=== PATIENT | female | born 1975 | race Caucasian/White ===

== ENCOUNTER 2020-03-05 21:33 | Inpatient (IN) | payer MEDICARE, MEDICAID ==
[~2020-03-05] VITALS: Ht 154.9 cm; Wt 75.8 kg
[2020-03-05] MEDS ORDERED: LEVO125T4 PO (21:56)
[2020-03-05] MEDS ORDERED: TRAZ1TAB10 PO (21:56)
[2020-03-05] MEDS ORDERED: HYDR50CA2 PO (21:56)
[2020-03-05] MEDS ORDERED: LATU40TA PO (21:56)
[2020-03-05] MEDS ORDERED: PROZ40CA PO (21:56)
[2020-03-06] MEDS ORDERED: MOM 30ML SUSPENSION UDC PO PRN (00:30)
[2020-03-06] MEDS ORDERED: traZODone 50 MG TAB PO PRN (00:30)
[2020-03-06] MEDS ORDERED: IBUPROFEN 400 MG TAB PO PRN (00:30)
[2020-03-06] MEDS ORDERED: OLANZapine ORAL DISINTEGRATING TAB 5MG PO PRN (00:30)
[2020-03-06] MEDS ORDERED: MAALOX 30 ML SUSP *UDC PO PRN (00:30)
[2020-03-06 01:30] VITALS: BP 123/68
[2020-03-06 05:52] VITALS: BP 113/54
[2020-03-06] MEDS: NICOTINE 7 MG/24 HR TRANSDERMAL TD SCH (08:59)
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
--- NOTE | 2020-03-06 14:53 | HPEPDOC ---
General Date of Admission March 06, 2020 at 00:28 Date of Service: March 06, 2020 Chief Complaint The patient is a 44-year-old female Who presented to the hospital after having suicidal thoughts History of Present Illness Patient is a 44-year-old female with a past medical history of hypothyroidism and depression who presented to the emergency room after having suicidal ideation report that she wanted to cut her wrists bed confined any razors. She decided to call for help and was advised to come to emergency room for evaluation. Patient was admitted to the inpatient mental health unit under the care of psychiatry. Hospitalist services consult for medical evaluation. Currently, patient reports that she does experiencing some nausea without any episodes of vomiting. Reports remote history of palpitations and constipation. Denies any chest pain, shortness of breath, cough, abdominal pain, diarrhea, or urinary discomfort. Patient also reports 7. The last couple of days. She may have experienced chills. Patient reports her appetite is poor and has reported some weight loss. Home Medications Scheduled Fluoxetine HCl (Prozac) 40 Mg Capsule, 40 MG PO DAILY, (Reported) Levothyroxine Sodium (Levothyroxine Sodium) 125 Mcg Tablet, 125 MG PO QAM, (Reported) Lurasidone Hydrochloride (Latuda) 40 Mg Tablet, 40 MG PO QPM, (Reported) Scheduled PRN Hydroxyzine Pamoate (Hydroxyzine Pamoate) 50 Mg Capsule, 50 MG PO BID PRN for ANXIETY, (Reported) Trazodone HCl (Trazodone HCl) 50 Mg Tablet, 50 MG PO QPM PRN for INSOMNIA, (Reported) Allergies Coded Allergies: No Known Allergies (Unverified , 03/05/20) Past Medical History Medical History Hypothyroidism Depression Surgical History Tubal ligation 2000 Pyloric stenosis. s/p surgery as an infant Family History - Mother with a history of breast cancer - Father, , but with a history of diabetes, asthma, COPD, emphysema Social History - Patient is a smoker on and off since the age of 16 - Social alcohol use - She reports using marijuana occasionally - Denies recent travel or sick contacts - Lives with son and his girlfriend - Occupation; currently unemployed and on disability Review of Systems Other systems 10 point review of systems complete, all negative otherwise stated in HPI Vital Signs - Vitals: BP 113/54, HR 55, RR 14, Sat 97%RA, Temp 98.5F - General: Sitting in exam chair, appears comfortable, AAOx3 - HEENT: NC, AT, PERRLA - CVS: Bradycardic, +S1S2 - Lungs: Fair air entry bilaterally, No appreciable wheezing / rales / rhonchi - Abdomen: Soft, Non-distended, Non-tender - Extremities: No lower extremity edema, No calf tenderness - Neuro: No focal motor or sensory deficit - Skin: No visible rashes Plan / VTE VTE Prophylaxis Ordered?: Yes Plan Plan Suicidal ideation - Patient presented to the emergency room after having thoughts of suicide - Patient was admitted to the inpatient mental health unit under the care of psychiatry - This is currently being managed by psychiatry Hypothyroidism - Patient has had some bradycardia remains asymptomatic - Will check TSH, free T4 and total T3 - Will continue with levothyroxine DVT prophylaxis - Will c/w early ambulation Female grain packer was present for the duration of his history and physical examination Thank you for this consultation; please reconsult as needed CHRISTA REYNOSO MD March 06, 2020 14:53
[2020-03-06 16:32] LABS: FREE T4 1.24 NG/DL (0.76-1.46); THYROID STIMULATING HORMONE 1.53 uIU/ML (0.358-3.740)
[2020-03-06] MEDS: LURASIDONE HCL 40 MG TAB (LATUDA) PO SCH (17:33)
[2020-03-06] MEDS: LEVOTHYROXINE 125MCG TABLET (0.125MG) PO SCH (17:33)
[2020-03-06] MEDS: FLUoxetine 20 MG CAP PO SCH (17:33)
[2020-03-06 18:00] VITALS: BP 131/60
[2020-03-06] MEDS: hydrOXYzine 50 MG TAB PO PRN (19:02)
[2020-03-07] MEDS: LEVOTHYROXINE 125MCG TABLET (0.125MG) PO SCH (05:46)
[2020-03-07 06:12] VITALS: BP 112/58
[2020-03-07] MEDS: NICOTINE 7 MG/24 HR TRANSDERMAL TD SCH (08:17)
[2020-03-07] MEDS: FLUoxetine 20 MG CAP PO SCH (08:17)
--- NOTE | 2020-03-07 09:05 | MHIPNPDOC ---
[facility] Progress Note Progress Note DATE OF SERVICE: 03/07/20 44-year-old woman seen in follow-up, she reports still being depressed, anxious and having difficulty with motivation. She reports no side effects from her m edications. She is been attending to treatment but appears to be quite depressed per nursing. She appears to be engaging in treatment but reports that it's difficult to cope with her current living situation. Vital Signs Vital Signs Date Time Temp Pulse Resp B/P (MAP) Pulse Ox O2 Delivery O2 Flow Rate FiO2 03/07/20 06:12 98.2 65 12 112/58 (76) 03/06/20 01:30 97 Room Air Laboratory Data 24H Labs Laboratory Tests 2 03/06/20 15:39: Thyroid Stimulating Hormone (TSH) 1.530, Free Thyroxine 1.24 Current Medications Current Medications Medications (Trade) Dose Ordered Sig/Nahid Route PRN Reason Start Time Stop Time Status Last Admin Dose Admin Al Hydrox/Mg Hydrox/Simethicone (Mylanta) 30 ml Q4HP PRN PO HEARTBURN/INDIGESTION 03/06/20 00:30 Fluoxetine HCl (PROzac) 40 mg DAILY PO 03/06/20 09:00 03/07/20 08:17 Home Med (Med Rec Complete!) 1 ea ASDIRECTED XX 03/05/20 22:45 03/05/20 22:41 DC Hydroxyzine HCl (Atarax) 50 mg BID PRN PO ANXIETY 03/06/20 14:30 03/06/20 19:02 Ibuprofen (Advil) 400 mg Q6HP PRN PO PAIN 03/06/20 00:30 Levothyroxine Sodium (Synthroid) 125 mcg QAM@0600 PO 03/06/20 06:00 03/07/20 05:46 Lurasidone HCl (Latuda) 40 mg QPM@1800 PO 03/06/20 18:00 03/06/20 17:33 Magnesium Hydroxide (Milk Of Magnesia) 30 ml DAILYPRN PRN PO CONSTIPATION 03/06/20 00:30 Nicotine (Nicoderm Cq 7 Mg) 1 patch DAILY TD 03/06/20 09:00 03/07/20 08:17 Olanzapine (ZyPREXA ZYDIS) 5 mg Q6HP PRN PO ANXIETY/AGITATION 03/06/20 00:30 Trazodone HCl (Desyrel) 50 mg QHSP PRN PO INSOMNIA 03/06/20 00:30 Allergies Coded Allergies: No Known Allergies (Unverified , 03/05/20) Review of Systems Review of Systems General: Reports: Normal Appetite Constitutional: Denies: Fever, Fatigue Pulmonary: Denies: Cough Cardiovascular: Denies: Chest Pain, Palpitations Gastrointestinal: Denies: Nausea, Vomiting, Abdominal Pain, Diarrhea, Constipation Musculoskeletal: Denies: Muscle Pain Psych: Reports: Depression Mental Status Examination General Appearance: well groomed Build: average Demeanor: average Eye Contact: average Activity: average Behavior: cooperative Speech: clear Mood: depressed Affect: constricted Thought Process: logical/linear Thought Content (Delusions): none reported Thought Content (Other): other (SI passive) Thought Content (Aggressive): none reported Perception (Hallucinations): none reported Perception (Other): none reported Cognition (Impairment of): none reported Cognition(Intelligence Est.): MR Oriented: Awake Insight: fair Judgment: Fair Psychosis: Denies Assessment 44-year-old woman with a history of depression and PTSD as well as noncompliance with her medications is seen in follow-up, she is making very slow progress. She is converted to voluntary in order to further her treatment. Problem List Problems: (1) Suicidal ideation Onset Date: ~ 03/03/2020 Status: Acute Response to Treatment: Improving Problem Specific Plan: Monitor Clinically Problem Text: Appears to be resolving slowly (2) Depression Status: Acute Response to Treatment: Stable Problem Specific Plan: Monitor Clinically Problem Text: continue prozac and latuda (3) Post-traumatic stress disorder, unspecified Status: Chronic Response to Treatment: Stable Discussed With: Nurse Problem Text: Prozac contiue (4) Cannabis abuse Status: Chronic Response to Treatment: Stable Discussed With: Nurse Problem Text: likely making situation worse. (5) Hypothyroid Status: Chronic Problem Text: continue thyroid medications Medications Scheduled Fluoxetine HCl (Prozac) 40 Mg Capsule, 40 MG PO DAILY, (Reported) Levothyroxine Sodium (Levothyroxine Sodium) 125 Mcg Tablet, 125 MG PO QAM, (Reported) Lurasidone Hydrochloride (Latuda) 40 Mg Tablet, 40 MG PO QPM, (Reported) Scheduled PRN Hydroxyzine Pamoate (Hydroxyzine Pamoate) 50 Mg Capsule, 50 MG PO BID PRN for ANXIETY, (Reported) Trazodone HCl (Trazodone HCl) 50 Mg Tablet, 50 MG PO QPM PRN for INSOMNIA, (Reported) NATHANIEL RIDLEY DO March 07, 2020 09:05
[2020-03-07 10:03] LABS: TOTAL T3 107.5 NG/DL (60.0-181.0)
[2020-03-07] MEDS: LURASIDONE HCL 40 MG TAB (LATUDA) PO SCH (17:16)
[2020-03-07] MEDS: hydrOXYzine 50 MG TAB PO PRN (18:38)
[2020-03-07 18:47] VITALS: BP 128/69
[2020-03-08] MEDS: LEVOTHYROXINE 125MCG TABLET (0.125MG) PO SCH (06:07)
[2020-03-08 06:12] VITALS: BP 107/57
[2020-03-08] MEDS: NICOTINE 7 MG/24 HR TRANSDERMAL TD SCH (08:15)
[2020-03-08] MEDS: FLUoxetine 20 MG CAP PO SCH (08:15)
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
[2020-03-08] MEDS: hydrOXYzine 50 MG TAB PO PRN (16:37)
[2020-03-08 16:59] VITALS: BP 133/67
[2020-03-08] MEDS: LURASIDONE HCL 40 MG TAB (LATUDA) PO SCH (17:48)
[2020-03-09 05:52] VITALS: BP 106/51
[2020-03-09] MEDS: LEVOTHYROXINE 125MCG TABLET (0.125MG) PO SCH (05:57)
[2020-03-09] MEDS: FLUoxetine 20 MG CAP PO SCH (08:53)
[2020-03-09] MEDS: NICOTINE 7 MG/24 HR TRANSDERMAL TD SCH (08:53)
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
[2020-03-09] MEDS ORDERED: NICO7PA TD (11:09)
[2020-03-09] MEDS: hydrOXYzine 50 MG TAB PO PRN (11:58)
== END 2020-03-09 14:10 | disposition home or self-care (01) | DRG 881 ==
LOC: EDSEX 21:33 → M ED 21:33 → M ED INP 03-06 00:28 → M PSY 03-06 01:39
PROVIDERS: ADMIT Psychiatry & Neurology Psychiatry; ATTEND Psychiatry & Neurology Addiction Medicine
DX: F32.9 Major depressive disorder, single episode, unspecified (principal); R45.851 Suicidal ideations; F43.12 Post-traumatic stress disorder, chronic; Z79.899 Other long term (current) drug therapy; E03.9 Hypothyroidism, unspecified